=== PATIENT | female | born 1935 | race Two or more races ===

== ENCOUNTER 2017-10-03 07:23 | Emergency (ER) | payer OTHER ==
[~2017-10-03] VITALS: Ht 165.1 cm; Wt 68.0 kg
[~2017-10-03 07:23] MED LIST: ALLEGRA ALLERGY60 MG; BIAXIN500 MG; COZAAR25 MG; DRAMAMINE LESS25 MG PO; GLIPIZIDE5 MG; METFORMIN HCL500 MG; MONTELUKAST SOD10 MG; MUCINEX D ER 61 EACH; PREDNISONE20 MG; TRICOR48 MG
== END 2017-10-03 12:42 | disposition home or self-care (01) ==
LOC: ER 07:23
DX: R42 Dizziness and giddiness (principal)

== ENCOUNTER 2018-07-27 09:00 | Emergency (ER) | payer OTHER ==
[~2018-07-27] VITALS: Ht 165.1 cm; Wt 69.9 kg
== END 2018-07-27 13:04 | disposition home or self-care (01) ==
LOC: ER 09:00
DX: R42 Dizziness and giddiness (principal)

== ENCOUNTER → 2018-11-30 | Emergency (ER) | payer OTHER ==
[~2018-11-30] VITALS: Ht 152.4 cm; Wt 70.8 kg
[~2018-11-30] MED LIST changes: +ANTIVERT
== END | disposition home or self-care (01) ==
LOC: ER 07:25
DX: R42 Dizziness and giddiness (principal)

== ENCOUNTER 2019-07-09 03:19 | Emergency (ER) | payer OTHER ==
[~2019-07-09] VITALS: Ht 165.1 cm; Wt 68.9 kg
[2019-07-09] MEDS ORDERED: COZAAR25 MG (03:34)
== END 2019-07-09 09:39 | disposition home or self-care (01) ==
LOC: ER 03:19
DX: R42 Dizziness and giddiness (principal)

== ENCOUNTER 2021-12-08 12:39 | Outpatient (CLI) | payer OTHER | END 2021-12-08 12:40 | disposition home or self-care (01) | LOC: NUCLEAR 12:39 | PROVIDERS: ATTEND Orthopaedic Surgery | DX: M81.0 Age-related osteoporosis without current pathological fracture (principal) ==